=== PATIENT | female | born 1990 | race Caucasian/White ===

== ENCOUNTER → 2019-06-03 | Emergency (ER) | payer OTHER ==
[~2019-06-03] VITALS: Ht 160 cm; Wt 63.5 kg
[~2019-06-03] MED LIST: ATABEX DHA 200200 MG; MONISTAT 315 GM VAG
== END ==
LOC: ER 04:33
DX: B37.89 Other sites of candidiasis (principal)

== ENCOUNTER → 2019-07-31 | Outpatient (CLI) | payer OTHER | END | disposition home or self-care (01) | LOC: PRENATAL 14:39 | DX: O35.3XX1 Maternal care for (suspected) damage to fetus from viral disease in mother, fetus 1 (principal); O34.219 Maternal care for unspecified type scar from previous cesarean delivery; O65.5 Obstructed labor due to abnormality of maternal pelvic organs; Z3A.22 22 weeks gestation of pregnancy ==

== ENCOUNTER 2019-08-09 18:04 | Outpatient (CLI) | payer OTHER ==
[2019-08-09] MEDS ORDERED: PRENATAL TABLE1 EACH PO (19:26)
== END 2019-08-09 21:28 | disposition home or self-care (01) ==
LOC: OBS/DEL 18:04
DX: O26.892 Other specified pregnancy related conditions, second trimester (principal); R10.2 Pelvic and perineal pain

== ENCOUNTER 2019-10-21 02:07 | Inpatient (IN) | payer OTHER ==
[~2019-10-21] VITALS: Ht 160 cm; Wt 2.3 kg
[~2019-10-21 02:07] MED LIST changes: +PRENATAL TABLE1 EACH PO
[2019-11-08] MEDS ORDERED: ULTRAM50 MG PO (09:45)
== END 2019-11-08 10:57 | disposition home or self-care (01) | DRG 787 ==
LOC: LDR 02:07 → OB/GYN 02:07
PROVIDERS: ADMIT Obstetrics & Gynecology
PROC: 3E033VJ Introduction of Other Hormone into Peripheral Vein, Percutaneous Approach (ICD-10-PCS; 2019-11-05)
PROC: 4A1HXFZ Monitoring of Products of Conception, Cardiac Rhythm, External Approach (ICD-10-PCS; 2019-11-05)
PROC: 10D00Z1 Extraction of Products of Conception, Low, Open Approach (ICD-10-PCS; principal; 2019-11-05 07:00)
DX: O43.123 Velamentous insertion of umbilical cord, third trimester (principal); O98.82 Other maternal infectious and parasitic diseases complicating childbirth; B95.1 Streptococcus, group B, as the cause of diseases classified elsewhere; O34.211 Maternal care for low transverse scar from previous cesarean delivery; O24.420 Gestational diabetes mellitus in childbirth, diet controlled; Z3A.36 36 weeks gestation of pregnancy; Z37.0 Single live birth

== ENCOUNTER 2020-10-13 05:52 | Day surgery (SDC) | payer OTHER ==
[~2020-10-13 05:52] MED LIST changes: +ULTRAM50 MG PO
[2020-10-13] MEDS ORDERED: ULTRAM50 MG PO (08:50)
== END 2020-10-13 12:15 | disposition home or self-care (01) ==
LOC: CIR.AMB 05:52
PROVIDERS: ATTEND Obstetrics & Gynecology
DX: Z30.2 Encounter for sterilization (principal); Z30.430 Encounter for insertion of intrauterine contraceptive device; Z20.822 Contact with and (suspected) exposure to COVID-19